=== PATIENT | male | born 1960 | race Two or more races ===

== ENCOUNTER → 2021-11-20 | Outpatient (CLI) | payer MEDICARE | LOC: MRI 13:42 | DX: Z00.00 Encounter for general adult medical examination without abnormal findings (principal); R13.10 Dysphagia, unspecified; G90.2 Horner's syndrome; G47.33 Obstructive sleep apnea (adult) (pediatric) | CPT/HCPCS: 36415; 70250; 76536; 82565; 84520 ==

== ENCOUNTER → 2022-01-01 | Outpatient (CLI) | payer MEDICARE | LOC: RAD 16:29 | DX: M25.562 Pain in left knee (principal); I10 Essential (primary) hypertension; G47.33 Obstructive sleep apnea (adult) (pediatric); E66.09 Other obesity due to excess calories; G45.9 Transient cerebral ischemic attack, unspecified; M25.462 Effusion, left knee | CPT/HCPCS: 73560 ==